=== PATIENT | male | born 1980 | race Caucasian/White ===

== ENCOUNTER 2022-04-02 10:32 | Day surgery (SDC) | payer MEDICARE, MEDICAID ==
[~2022-04-02] VITALS: Ht 167.6 cm; Wt 86.8 kg
[~2022-04-02 10:32] MED LIST: ASPIRIN 81 MG CHEWABLE TABLET PO ONE; ATOR20TA86 PO; CARV3 PO; DARU1TAB3 PO; DIAZEPAM 5 MG TABLET PO ONE; DiphenhydrAMINE HCL 50 MG CAPSULE PO ONE; HYDR-3831 PO; SACU1TAB PO; SODIUM CHLORIDE 0.9% 0 ML ONE; SODIUM CHLORIDE 0.9% 1,000 ML IV SCH; SODIUM CHLORIDE 0.9% 1,000 ML ONE
[2022-04-02] MEDS ORDERED: DIAZEPAM 5 MG TABLET ONE (11:32)
[2022-04-02] MEDS ORDERED: ASPIRIN 81 MG CHEWABLE TABLET ONE (11:32)
[2022-04-02] MEDS ORDERED: DiphenhydrAMINE HCL 50 MG CAPSULE ONE (11:32)
[2022-04-02] MEDS ORDERED: LIDOCAINE/PF 1% 30 ML VIAL ONE (12:50)
[2022-04-02] MEDS ORDERED: SODIUM BICARBONATE 50 MEQ/50 ML VIAL ONE (12:50)
[2022-04-02] MEDS ORDERED: HEPARIN SODIUM 1000 UNITS/NS 1,000 ML ONE (12:51)
[2022-04-02] MEDS ORDERED: IOHEXOL 300 MG/ML 150 ML VIAL ONE (12:51)
[2022-04-02] MEDS ORDERED: MIDAZOLAM HCL 2 MG/2 ML VIAL ONE (12:59)
[2022-04-02] MEDS ORDERED: FentaNYL CITRATE PF 100 MCG/2 ML VIAL ONE (12:59)
[2022-04-02 13:03] VITALS: BP 129/91
[2022-04-02] MEDS ORDERED: HEPARIN SODIUM 1000 UNITS/NS 1,000 ML IARTER ONE (13:15)
[2022-04-02] MEDS ORDERED: IOHEXOL 300 MG/ML 150 ML VIAL ICOR ONE (13:15)
[2022-04-02] MEDS ORDERED: LIDOCAINE 1% 30 ML/SOD BICARB 8.4% 4 ML SQ ONE (13:15)
[2022-04-02] MEDS ORDERED: MIDAZOLAM HCL 2 MG/2 ML VIAL IVP ONE (13:15)
[2022-04-02] MEDS ORDERED: FentaNYL CITRATE PF 100 MCG/2 ML VIAL IVP ONE (13:15)
[2022-04-02 13:53] VITALS: BP 113/86
== END 2022-04-02 18:10 | disposition home or self-care (01) ==
LOC: CATHLAB 10:32
PROVIDERS: ATTEND Internal Medicine Interventional Cardiology
DX: R94.39 Abnormal result of other cardiovascular function study (principal); R07.9 Chest pain, unspecified; I51.7 Cardiomegaly; B20 Human immunodeficiency virus [HIV] disease; F15.90 Other stimulant use, unspecified, uncomplicated; I27.20 Pulmonary hypertension, unspecified; E78.00 Pure hypercholesterolemia, unspecified; G80.9 Cerebral palsy, unspecified; F41.9 Anxiety disorder, unspecified; I42.9 Cardiomyopathy, unspecified; E78.5 Hyperlipidemia, unspecified; I10 Essential (primary) hypertension; Z79.899 Other long term (current) drug therapy; Z98.890 Other specified postprocedural states; Z86.73 Personal history of transient ischemic attack (TIA), and cerebral infarction without residual deficits; Z87.891 Personal history of nicotine dependence
CPT/HCPCS: 93460; 99152; 99153; C1760; J1644; J2250; J3010; J3490 ×2; J7030; Q9967